=== PATIENT | female | born 1985 | race African-American/Black ===

== ENCOUNTER 2016-10-10 19:46 | Emergency (ER) | payer OTHER, MEDICAID ==
[~2016-10-10] VITALS: Ht 175.3 cm; Wt 75.0 kg
[2016-10-10 20:22] VITALS: BP 105/62
== END 2016-10-10 21:09 | disposition home or self-care (01) ==
LOC: ER 19:48
DX: H66.91 Otitis media, unspecified, right ear (principal)
CPT/HCPCS: 99283

== ENCOUNTER 2017-07-28 13:10 | Emergency (ER) | payer OTHER, MEDICAID | END 2017-07-28 14:23 | disposition left against medical advice (07) | LOC: ER 14:22 | DX: Z53.21 Procedure and treatment not carried out due to patient leaving prior to being seen by health care provider (principal) ==